=== PATIENT | male | born 1950 | race Caucasian/White ===

== ENCOUNTER → 2020-02-20 | Outpatient (CLI) | payer MEDICARE | END | disposition home or self-care (01) | LOC: CVU 10:09 | PROVIDERS: ATTEND Internal Medicine Cardiovascular Disease | DX: I65.23 Occlusion and stenosis of bilateral carotid arteries (principal); I25.10 Atherosclerotic heart disease of native coronary artery without angina pectoris | CPT/HCPCS: 93880 ==

== ENCOUNTER → 2020-03-18 | Outpatient (CLI) | payer MEDICARE | END | disposition home or self-care (01) | LOC: CFH 11:48 | PROVIDERS: ATTEND Internal Medicine Cardiovascular Disease | DX: I25.10 Atherosclerotic heart disease of native coronary artery without angina pectoris (principal) | CPT/HCPCS: 78452; 93017; A9502 ==

== ENCOUNTER 2020-08-26 13:01 | Inpatient (IN) | payer SELFPAY ==
[2020-08-26] VITALS (15 sets, daily range): BP systolic 144–174; BP diastolic 90–101
[~2020-08-26] VITALS: Ht 177.8 cm; Wt 95.5 kg
--- NOTE | 2020-08-26 13:01 | NUR ---
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
[2020-08-26] MEDS ORDERED: FENTANYL PF 100 MCG/2ML ONE (13:04)
[2020-08-26] MEDS ORDERED: BIVALIRUDIN 250 MG ONE ×2 (13:04→13:54)
[2020-08-26] MEDS ORDERED: MIDAZOLAM 1 MG/ML, 5ML ONE (13:04)
[2020-08-26] MEDS ORDERED: VERAPAMIL 2.5 MG/ML, 2ML ONE (13:04)
[2020-08-26] MEDS ORDERED: LIDOCAINE 2%, 20ML ONE (13:04)
[2020-08-26] MEDS ORDERED: TICAGRELOR 90 MG TABLET ONE (13:04)
[2020-08-26] MEDS ORDERED: NITROGLYCERIN 5 MG/ML, 10ML ONE (13:04)
[2020-08-26] MEDS ORDERED: HEPARIN 1,000 UNITS/ML, 10ML ONE (13:04)
[2020-08-26] MEDS ORDERED: ASPIRIN 325 MG TABLET PO ONE (13:06)
--- NOTE | 2020-08-26 13:16 | NUR ---
PT TRANSPORTED TO AREA FIELD MANAGER.
--- NOTE | 2020-08-26 13:17 | NUR ---
CODE PG @ 0460 CARDS IN HOUSE CAME TO SEE PT
[2020-08-26 13:22] LABS: BASOPHILS % (AUTO) 1 % (0-1); EOSINOPHILS % (AUTO) 1 % (1-7); LYMPHOCYTES % (AUTO) 21 % (22-44); MD NO; MEAN CORPUSCULAR HEMOGLOBIN 30.6 pg (27.5-34.5); MEAN CORPUSCULAR HGB CONC 33.9 g/dL (33.2-36.2); MEAN PLATELET VOLUME 10.1 fL (7.4-10.4); MONOCYTES % (AUTO) 7 % (2-9); NEUTROPHILS % (AUTO) 71 % (42-75); PLATELET COUNT 147 x10^3/uL (130-400); RED BLOOD COUNT 5.18 x10^6/uL (4.38-5.82)
[2020-08-26] MEDS ORDERED: SODIUM CHLORIDE FLUSH 10ML SYR IVF PRN (13:30)
[2020-08-26 13:32] LABS: INTERNATIONAL NORMALIZED RATIO 1.1 (0.93-1.1); PROTHROMBIN TIME 11.8 Seconds (9.6-11.5)
[2020-08-26] MEDS ORDERED: TAMSULOSIN (13:34)
[2020-08-26] MEDS ORDERED: FINASTERIDE (13:34)
[2020-08-26] MEDS ORDERED: ATORVASTATIN (13:34)
[2020-08-26] MEDS ORDERED: VIAGRA (13:34)
[2020-08-26] MEDS ORDERED: ASPIRIN (13:34)
[2020-08-26] MEDS ORDERED: NITR0.4T28 SL (13:34)
[2020-08-26] MEDS ORDERED: METOPROLOL (13:34)
[2020-08-26 13:35] LABS: TROPONIN I 0.035 ng/mL (0.000-0.045)
[2020-08-26] MEDS ORDERED: morphine SULFATE 10 MG/ML, 1ML IVPush PRN (14:00)
[2020-08-26] MEDS ORDERED: NITROGLYCERIN 0.4 MG/SPRAY SL PRN (14:00)
[2020-08-26] MEDS ORDERED: ACETAMINOPHEN 325 MG TABLET PO PRN (14:00)
[2020-08-26] MEDS ORDERED: BISACODYL 5 MG EC TABLET PO PRN (14:00)
[2020-08-26] MEDS ORDERED: BIVALIRUDIN 250 MG in SODIUM CHLORIDE 0.9% 50 ML IV SCH ×2 (14:00→14:14)
[2020-08-26] MEDS ORDERED: ONDANSETRON 2MG/ML, 2ML IVPush PRN (14:00)
[2020-08-26] MEDS ORDERED: ZOLPIDEM 5MG TABLET PO PRN (14:00)
[2020-08-26] MEDS: SODIUM CHLORIDE 0.9% 1,000 ML IV SCH ×2 (15:05→22:06)
[2020-08-26] MEDS: TAMSULOSIN 0.4 MG CAP.ER.24H PO SCH (21:15)
[2020-08-26] MEDS: TICAGRELOR 90 MG TABLET PO SCH (21:15)
[2020-08-26] MEDS: ATORVASTATIN 80 MG TABLET PO SCH (21:15)
[2020-08-26] MEDS ORDERED: METOPROLOL SUCCINATE 25 MG TAB.ER.24H PO ONE (22:00)
[2020-08-27 04:34] LABS: ANION GAP 8 mmol/L (5-15); CALCIUM 8.9 mg/dL (8.5-10.1); CHLORIDE 111 mmol/L (98-107)
[2020-08-27 04:40] LABS: CREATININE 0.79 mg/dL (0.7-1.3)
[2020-08-27] MEDS: SODIUM CHLORIDE 0.9% 1,000 ML IV SCH (05:54)
[2020-08-27] MEDS ORDERED: METOPROLOL SUCCINATE 25 MG TAB.ER.24H PO SCH (06:00)
[2020-08-27] MEDS: FINASTERIDE 5 MG TABLET PO SCH (07:30)
[2020-08-27] MEDS: TICAGRELOR 90 MG TABLET PO SCH ×2 (08:26→21:07)
[2020-08-27] MEDS: LOSARTAN 25MG TABLET PO SCH (09:57)
[2020-08-27] MEDS: ASPIRIN 81 MG TABLET CHEW PO SCH (09:57)
[2020-08-27] MEDS ORDERED: TAMSULOSIN 0.4 MG CAP.ER.24H PO ONE (13:00)
[2020-08-27] MEDS ORDERED: ASPI81TA45 PO (15:42)
[2020-08-27] MEDS ORDERED: TAMS-11 PO (15:42)
[2020-08-27] MEDS ORDERED: ATOR-2 PO (15:42)
[2020-08-27] MEDS ORDERED: FINA5TAB4 PO (15:42)
[2020-08-27] MEDS ORDERED: LIDOCAINE JELLY 2%, 30GM TP ONE (18:00)
[2020-08-27 20:06] VITALS: BP 145/78
[2020-08-27] MEDS: ATORVASTATIN 80 MG TABLET PO SCH (21:07)
[2020-08-27] MEDS: TAMSULOSIN 0.4 MG CAP.ER.24H PO SCH (21:07)
[2020-08-28 03:59] VITALS: BP 111/79
[2020-08-28] MEDS ORDERED: METOPROLOL SUCCINATE 50 MG TAB.ER.24H PO SCH (06:00)
[2020-08-28] MEDS: ASPIRIN 81 MG TABLET CHEW PO SCH (06:15)
[2020-08-28 07:15] VITALS: BP 110/73
[2020-08-28] MEDS ORDERED: TICA90TA PO (08:24)
[2020-08-28] MEDS ORDERED: METO-93 PO (08:24)
[2020-08-28] MEDS ORDERED: LOSA25TA25 PO (08:24)
[2020-08-28] MEDS: FINASTERIDE 5 MG TABLET PO SCH (08:29)
[2020-08-28] MEDS: LOSARTAN 25MG TABLET PO SCH (08:30)
[2020-08-28] MEDS: TICAGRELOR 90 MG TABLET PO SCH (08:30)
== END 2020-08-28 11:37 | disposition home or self-care (01) | DRG 247 ==
LOC: EDSEX 13:01 → EDBD 13:01 → MERGE 13:01 → ED 13:24 → CCU 13:25 → 5SO 08-27 18:46 → DCLOUNGE 08-28 11:07
PROVIDERS: ADMIT Internal Medicine Cardiovascular Disease; ATTEND Internal Medicine Cardiovascular Disease
PROC: 4A023N7 Measurement of Cardiac Sampling and Pressure, Left Heart, Percutaneous Approach (ICD-10-PCS; principal; 2020-08-26)
PROC: 027034Z Dilation of Coronary Artery, One Artery with Drug-eluting Intraluminal Device, Percutaneous Approach (ICD-10-PCS; 2020-08-26)
PROC: B2111ZZ Fluoroscopy of Multiple Coronary Arteries using Low Osmolar Contrast (ICD-10-PCS; 2020-08-26)
PROC: B2151ZZ Fluoroscopy of Left Heart using Low Osmolar Contrast (ICD-10-PCS; 2020-08-26)
DX: I21.09 ST elevation (STEMI) myocardial infarction involving other coronary artery of anterior wall (principal); E78.5 Hyperlipidemia, unspecified; I10 Essential (primary) hypertension; I25.10 Atherosclerotic heart disease of native coronary artery without angina pectoris; N40.1 Benign prostatic hyperplasia with lower urinary tract symptoms; Z20.822 Contact with and (suspected) exposure to COVID-19; N52.9 Male erectile dysfunction, unspecified; R33.8 Other retention of urine; Z87.891 Personal history of nicotine dependence; Z95.5 Presence of coronary angioplasty implant and graft
CPT/HCPCS: 36415; 93458; 99285; J3490; 71045; 80047; 80048; 84484; 85025; 85610; 85730; 87081; 87635; 93005; 93306; 93356; 99156; 99157; C1760; C1769; C1894; G0378; J0583; J1644; J2250; J3010; C1725; C1874; C1887; J7030; Q9967